=== PATIENT | female | born 1965 | race American Indian/Alaskan Native ===

== ENCOUNTER 2019-04-18 09:13 | Outpatient (CLI) | payer BC ==
[2019-04-18 09:39] LABS: Basophils # (Auto) 0.1 K/mm3 (0.0-0.1); Basophils % (Auto) 1.8 % (0.0-1.8); Eosinophils # (Auto) 0.1 K/mm3 (0.0-0.4); Eosinophils % (Auto) 2.1 % (0.0-4.3); Hematocrit 33.4 % (30.3-42.9); Lymphocytes # (Auto) 1.2 K/mm3 (1.2-5.4); Lymphocytes % (Auto) 32.5 % (13.4-35.0); Mean Corpuscular HGB Conc 33 % (30-34); Mean Corpuscular Volume 92 fl (79-97); Monocytes # (Auto) 0.3 K/mm3 (0.0-0.8); Monocytes % (Auto) 8.8 % (0.0-7.3); Platelet Count 198 K/mm3 (140-440); Red Blood Count 3.64 M/mm3 (3.65-5.03); Red Cell Distribution Width 12.9 % (13.2-15.2)
[2019-04-18 09:58] LABS: Alanine Aminotransferase 17 units/L (7-56); Albumin 4.3 g/dL (3.9-5); BUN/Creatinine Ratio 13; Blood Urea Nitrogen 12 mg/dL (7-17); Calcium 9.7 mg/dL (8.4-10.2); Hemolysis Index 8; LDL Cholesterol,Direct 136 mg/dL (50-130)
[2019-04-18 10:09] LABS: Chol/HDL Ratio 5.43 %; HDL Cholesterol 37 mg/dL (40-59)
[2019-04-21 09:01] LABS: Vitamin D, 25-OH, D2 <4 ng/mL
== END 2019-04-18 09:14 | disposition home or self-care (01) ==
LOC: LAB 09:13
PROVIDERS: ATTEND Internal Medicine
DX: Z00.00 Encounter for general adult medical examination without abnormal findings (principal); I10 Essential (primary) hypertension; J45.909 Unspecified asthma, uncomplicated
CPT/HCPCS: 36415; 80053; 80061; 82306; 85025

== ENCOUNTER 2019-05-12 07:22 | Inpatient (IN) | payer BC ==
[2019-05-12] MEDS ORDERED: dexAMETHasone 20 MG/5 ML VIAL IV ONE (07:52)
--- NOTE | 2019-05-12 08:10 | Emergency Department Report ---
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 She has been previously evaluated by me and subsequently admitted to the hospital for a possible MS flare. She states that she has had right leg weakness for over a year. She is a bit of a vague historian. However, as far as I can ascertain she has been having intermittent right leg weakness for the last week. She states that Thursday morning she woke up and was unable to move her leg at all. In improved during the day. She stated that there was intermittent weakness since then. Today she was at work and she felt as though the weakness was getting worse. She states that she has some problems with coordination of her right arm. She denies visual change. She stated that there was a difference in sensation of her right leg compared with her left on exam which is chronic in nature as well. Her history is complicated by a previous craniotomy for an unknown tumor. In addition she is treated she states with an MS medication g iven subcutaneously 3 times a week. She last saw her neurologist about 3 months ago. She cannot remember the last time she had an MR study. I sound an MR screening form from 06/05/18 seen here but no study. -: Gradual, week(s) Location: right, lower extremity Radiation: non-radiation Consistency: intermittent Improves with: none Worsens with: none Associated Symptoms: denies other symptoms Treatments Prior to Arrival: none - Related Data Home Medications Medication Instructions Recorded Confirmed Last Taken Ibuprofen [Motrin 200 MG tab] 200 mg PO Q6H PRN 06/02/18 06/02/18 Unknown Interferon Beta-1A/Albumin [Rebif 44 mcg SUB-Q 3XW 06/02/18 06/02/18 05/31/18 44 Mcg/0.5 ml Syringe] levETIRAcetam [Keppra TAB] 500 mg PO BID 06/02/18 06/02/18 06/02/18 Allergies Allergy/AdvReac Type Severity Reaction Status Date / Time No Known Allergies Allergy Verified 01/24/14 10:51 ED Review of Systems ROS: Stated complaint: WEAKNESS Other details as noted in HPI Constitutional: denies: chills, fever Eyes: denies: eye pain, eye discharge, vision change ENT: denies: ear pain, throat pain Respiratory: denies: cough, shortness of breath, wheezing Cardiovascular: denies: chest pain, palpitations Endocrine: no symptoms reported Gastrointestinal: denies: abdominal pain, nausea, diarrhea Genitourinary: denies: urgency, dysuria, discharge Musculoskeletal: denies: back pain, joint swelling, arthralgia Skin: denies: rash, lesions Neurological: as per HPI, weakness. denies: headache, paresthesias Psychiatric: denies: anxiety, depression Hematological/Lymphatic: denies: easy bleeding, easy bruising ED Past Medical Hx - Past Medical History Hx Hypertension: Yes Hx Asthma: Yes Additional medical history: MS, brain tumor - Surgical History Additional Surgical History: craniotomy 2014 - Social History Smoking Status: Never Smoker Substance Use Type: None - Medications Home Medications: Home Medications Medication Instructions Recorded Confirmed Last Taken Type Ibuprofen [Motrin 200 MG tab] 200 mg PO Q6H PRN 06/02/18 06/02/18 Unknown History Interferon Beta-1A/Albumin [Rebif 44 mcg SUB-Q 3XW 06/02/18 06/02/18 05/31/18 History 44 Mcg/0.5 ml Syringe] levETIRAcetam [Keppra TAB] 500 mg PO BID 06/02/18 06/02/18 06/02/18 History ED Physical Exam - General Limitations: No Limitations General appearance: alert, in no apparent distress - Head Head exam: Present: atraumatic, normocephalic - Eye Eye exam: Present: normal appearance. Absent: scleral icterus - ENT ENT exam: Present: mucous membranes moist - Neck Neck exam: Present: normal inspection - Respiratory Respiratory exam: Present: normal lung sounds bilaterally. Absent: respiratory distress - Cardiovascular Cardiovascular Exam: Present: regular rate, normal rhythm. Absent: systolic murmur, diastolic murmur, rubs, gallop - GI/Abdominal GI/Abdominal exam: Present: soft, normal bowel sounds. Absent: distended, tenderness, guarding, rebound - Extremities Exam Extremities exam: Present: normal inspection - Back Exam Back exam: Present: normal inspection - Neurological Exam Neurological exam: Present: alert, oriented X3, CN II-XII intact, motor sensory deficit (there appears to have some 4+ over 5 right leg weakness and perhaps some dysmetria of her right upper extremity, she has objective difference in fine touch testing comparing right to left but no loss of sensation grossly evident. Her NIH stroke score is 1 as she has test of drift and finger nose testing was normal. I'll give her one point for her chronic sensory deficit.) - Psychiatric Psychiatric exam: Present: normal mood, flat affect - Skin Skin exam: Present: warm, dry, intact, normal color. Absent: rash ED Course Vital Signs 05/12/19 07:35 Temperature 98.3 F Pulse Rate 89 Respiratory 17 Rate Blood Pressure 101/64 O2 Sat by Pulse 99 Oximetry - Reevaluation(s) Reevaluation #1: To be noted that the patient is not suspected of having a stroke. She is not a candidate for TPA. She has had fluctuating symptoms which are consistent with her previous deficits related to her multiple sclerosis over the last week. 05/12/19 08:16 Reevaluation #2: Discussed with hospitalist. Admit to their service. They will consult neurology. 05/12/19 08:49 ED Medical Decision Making - Lab Data Result diagrams: 05/12/19 08:07 05/12/19 08:07 Laboratory Results - last 24 hr 05/12/19 05/12/19 05/12/19 08:07 08:07 08:07 WBC 5.2 RBC 3.35 L Hgb 10.2 Hct 30.5 MCV 91 MCH 31 MCHC 34 RDW 12.5 L Plt Count 157 Lymph % (Auto) 12.5 L [place] % (Auto) 9.3 H Eos % (Auto) 2.1 Baso % (Auto) 0.4 Lymph # 0.7 L [place] # 0.5 Eos # 0.1 Baso # 0.0 Seg Neutrophils % 75.7 H Seg Neutrophils # 4.0 PT 12.4 INR 0.95 APTT 28.1 Sodium 140 Potassium 3.2 L Chloride 99.6 Carbon Dioxide 29 Anion Gap 15 BUN 14 Creatinine 1.0 Estimated GFR > 60 BUN/Creatinine Ratio 14 Glucose 100 Calcium 9.1 Total Creatine Kinase 164 H CK-MB (CK-2) < 1.0 CK-MB (CK-2) Rel Index 0.6 Critical care attestation.: If time is entered above; I have spent that time in minutes in the direct care of this critically ill patient, excluding procedure time. ED Disposition Clinical Impression: Multiple sclerosis exacerbation Disposition: OP ADMIT IP TO THIS HOSP Is pt being admited?: Yes Does the pt Need Aspirin: Yes Condition: Stable Referrals: PRIMARY CARE, [Primary Care Provider] - 3-5 Days Time of Disposition: 08:52
[2019-05-12] MEDS ORDERED: diphenhydrAMINE 50 MG/ML VIAL IV ONE (08:23)
[2019-05-12 08:25] LABS: Basophils % (Auto) 0.4 % (0.0-1.8); Eosinophils # (Auto) 0.1 K/mm3 (0.0-0.4); Eosinophils % (Auto) 2.1 % (0.0-4.3); Hematocrit 30.5 % (30.3-42.9); Hemoglobin 10.2 gm/dl (10.1-14.3); Lymphocytes # (Auto) 0.7 K/mm3 (1.2-5.4); Lymphocytes % (Auto) 12.5 % (13.4-35.0); Mean Corpuscular HGB Conc 34 % (30-34); Mean Corpuscular Volume 91 fl (79-97); Monocytes # (Auto) 0.5 K/mm3 (0.0-0.8); Monocytes % (Auto) 9.3 % (0.0-7.3); Platelet Count 157 K/mm3 (140-440); Red Blood Count 3.35 M/mm3 (3.65-5.03); Red Cell Distribution Width 12.5 % (13.2-15.2)
[2019-05-12 08:35] LABS: INR 0.95 (0.87-1.13); Partial Thromboplastin Time 28.1 Sec. (24.2-36.6)
[2019-05-12 08:39] LABS: BUN/Creatinine Ratio 14; Blood Urea Nitrogen 14 mg/dL (7-17); Calcium 9.1 mg/dL (8.4-10.2); Hemolysis Index 14
[2019-05-12 08:40] LABS: Creatine Kinase MB < 1.0 ng/mL (0.0-4.0)
[2019-05-12] MEDS ORDERED: POTASSIUM CHLORIDE ER 20 MEQ TAB PO ONE (08:47)
[2019-05-12 08:48] LABS: Erythrocyte Sedimentation Rate 51 mm/Hr (0-20)
[2019-05-12 08:51] LABS: Alanine Aminotransferase 19 units/L (7-56); Albumin 3.9 g/dL (3.9-5)
[2019-05-12] MEDS ORDERED: ASPIRIN 325 MG TAB PO ONE (08:51)
[2019-05-12 08:53] LABS: Bilirubin,Direct < 0.2 mg/dL (0-0.2)
--- NOTE | 2019-05-12 10:54 | History and Physical Report ---
History of Present Illness Date of examination: 05/12/19 Date of admission: 05/12/19 08:50 Chief complaint: Right leg weaker than baseline weakness History of present illness: Patient is 54 yo with history of multiple sclerosis since 2002. She also had Brain cancer in s/p craniotomy, resection, and chemotherapy at [facility]. She follows with Dr. Monster Lux, Neurologist at [place]. Patient has baseline mild right leg weakness but ambulates without a device. She presents with worse right sided weakness for about 1 week. Patient states she cohen d Flu vaccine 05/06/19 and same day at night she felt chilly but did not measure temp. Following morning she got out of bed but fell because of right leg weakness. Paramedics were called but she did not come to hospital. The weakness improved, she was able to ambulate. 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 Right leg started getting weak again, became worse while at work today therefore came to ED for evaluation. She was seen and evaluated in ED, diagnosed with possible MS exacerbation. MRI Brain ordered. Will admit. Past History Past Medical History: hypertension, other (Multiple sclerosis since 2002, Brain cancer s/p craniotomy, resection and chemotherapy , Asthma) Past Surgical History: Other (Brain cancer s/p craniotomy, chemotherapy) Social history: , lives with family, full code. denies: smoking, alcohol abuse Family history: hypertension Medications and Allergies Allergies Allergy/AdvReac Type Severity Reaction Status Date / Time No Known Allergies Allergy Verified 01/24/14 10:51 Home Medications Medication Instructions Recorded Confirmed Last Taken Type Ibuprofen [Motrin 200 MG tab] 200 mg PO Q6H PRN 06/02/18 05/12/19 05/11/19 History Interferon Beta-1A/Albumin [Rebif 44 mcg SUB-Q 3XW 06/02/18 05/12/19 05/11/19 History 44 Mcg/0.5 ml Syringe] levETIRAcetam [Keppra TAB] 500 mg PO BID 06/02/18 05/12/19 05/11/19 History hydroCHLOROthiazide [HCTZ] 12.5 mg PO BID 05/12/19 05/12/19 05/11/19 History traZODone [Desyrel] 100 mg PO QHS 05/12/19 05/12/19 05/11/19 History Review of Systems All systems: negative (Headache on and off, fatigue. No fever, No chest pain, no abd pain. All other systems revciewed and are negative) Exam - Physical Exam Narrative exam: Gen: Not in acute distress, Lying in bed,overweight HEENT: Normocephalic, atraumatic Neck: supple, no JVD Heart: S1 and S2 reg, no murmurs, rubs or gallop Lungs: Clear to auscultation, no rhonchi, no wheeze Abd: soft, non tender, non distended, normal BS, Ext: Tender left hip, No edema, no clubbing, no cyanosis Neuro: Awake, alert, oriented X 3, no facial asymmetry. Muscle power RUE 5/5 LUE 5/5 RLE 4/5 LLE 5/5 - Constitutional Vitals: Temp Pulse Resp BP Pulse Ox 98.3 F 85 15 102/65 96 05/12/19 07:35 05/12/19 09:00 05/12/19 09:00 05/12/19 09:00 05/12/19 09:00 Results - Labs CBC & Chem 7: 05/13/19 05:55 05/13/19 05:55 Labs: Abnormal lab results 05/12/19 05/12/19 Range/Units 08:07 08:07 RBC 3.35 L (3.65-5.03) M/mm3 RDW 12.5 L (13.2-15.2) % Lymph % (Auto) 12.5 L (13.4-35.0) % [place] % (Auto) 9.3 H (0.0-7.3) % Lymph # 0.7 L (1.2-5.4) K/mm3 Seg Neutrophils % 75.7 H (40.0-70.0) % Potassium 3.2 L (3.6-5.0) mmol/L Total Creatine Kinase 164 H (30-135) units/L Assessment and Plan Right leg weakness possibly due to multiple sclerosis flare weaker than baseline weakness Admit to med/surg Decadron iv given in ED Consult neurology Neurochecks Multiple sclerosis since 2002 Follows wit neurology History of Brain cancer, malignant tumor s/p craniotomy,resection, chemotherapy in 2014/2015 Hypertension Monitor BP Asthma Full code status
[2019-05-12] MEDS ORDERED: ACETAMINOPHEN 325 MG TAB PO PRN (11:03)
[2019-05-12] MEDS ORDERED: MORPHINE 2 MG/1 ML INJ IV PRN (11:03)
[2019-05-12] MEDS ORDERED: ONDANSETRON 4 MG/2 ML INJ IV PRN (11:03)
--- NOTE | 2019-05-12 12:27 | Magnetic Resonance Report ---
MRI BRAIN 05/12/2019 INDICATION / CLINICAL INFORMATION: R sided weakness MS flair. TECHNIQUE: Multiplanar, multisequence MR images of the brain were obtained. Findings:: Unenhanced and enhanced MR images of the brain were obtained. There is no evidence of acute ischemic injury. In the left anterior frontal lobe, there is extensive encephalomalacia, associated with what appears to be extensive serpiginous vascular structures, consistent with arteriovenous malformation. There is no evidence of hemorrhage. Some subtle patchy areas of increased T1 weighted signal is noted, which may be due to mineralization or chronic blood products. There is no evidence of acute ischemic injury or acute hemorrhage. Ventricles and sulci are normal in size and shape for a patient of this age. There is some ex vacuo d ilatation of the frontal horn of left lateral ventricle, associated with the large area of encephalom alacia. Prominent chronic appearing white matter T2 weighted hyperintensities are present in the cerebral hem ispheric white matter bilaterally. There are no abnormal extra-axial fluid collections. On postcontrast images, there is some dural enhancement in the anterior medial left frontal lobe, in association with the area of encephalomalacia and AVM. A be due to prior surgery or radiation treatme nt. There is no other evidence of abnormal enhancement. EXTRACRANIAL: Unremarkable CRANIOCERVICAL JUNCTION: No significant abnormality. VASCULAR FLOW-VOIDS: No significant abnormality. 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 Correlation with details of the prior history and comparison with recent prior studies would be helpful for further evaluation. No evidence of acute abnormality. Signer Name: Herberth Dumont MD Signed: 05/12/2019 12:22 PM Workstation Name: [id number]
[2019-05-12] MEDS: levETIRAcetam 500 MG TAB PO SCH ×2 (13:14→22:33)
[2019-05-12 17:05] LABS: Bilirubin,Urine NEG (Negative); Blood,Urine NEG (Negative); Color,Urine Yellow (Yellow); Mucus,Urine FEW /HPF; Protein,Urine <15 mg/dL mg/dL (Negative); Urobilinogen,Urine < 2.0 mg/dL (<2.0)
[2019-05-12 17:07] LABS: WBC,Urine < 1.0 /HPF (0.0-6.0)
--- NOTE | 2019-05-12 18:56 | Consultation ---
History of Present Illness Consult date: 05/12/19 Reason for Consult: Right leg weakness Chief complaint: Right leg weakness History of present illness: Patient is a 54-year-old woman with a history of hypertension, asthma, multiple sclerosis, history of brain tumor status post resection and chemotherapy. Patient states that for the past year and a half, she is had a baseline of right lower extremity weakness. On Thursday, the patient had the flu vaccine, and that evening she noticed that she was having chills. She got up to go to the restroom that night, and noticed that she had increased weakness of the right leg, due to which she fell. Over the weekend, she noted that her right leg weakness had gradually improved, and she was able to perform her usual work over the course of the week. However, earlier today, the patient noted that she was having increased weakness of the right leg Ammann and unsteady gait, for which she presented to the ER. She is currently followed by a primary neurologist who is treating her multiple sclerosis with Rebif. Past History Past Medical History: hypertension, other (Multiple sclerosis since 2002, Brain cancer s/p craniotomy, resection and chemotherapy , Asthma) Past Surgical History: Other (Brain cancer s/p craniotomy, chemotherapy) Social history: , lives with family, full code. denies: smoking, alc ohol abuse Family history: hypertension Medications and Allergies Allergies Allergy/AdvReac Type Severity Reaction Status Date / Time No Known Allergies Allergy Verified 01/24/14 10:51 Home Medications Medication Instructions Recorded Confirmed Last Taken Type Ibuprofen [Motrin 200 MG tab] 200 mg PO Q6H PRN 06/02/18 05/12/19 05/11/19 History Interferon Beta-1A/Albumin [Rebif 44 mcg SUB-Q 3XW 06/02/18 05/12/19 05/11/19 History 44 Mcg/0.5 ml Syringe] levETIRAcetam [Keppra TAB] 500 mg PO BID 06/02/18 05/12/19 05/11/19 History hydroCHLOROthiazide [Hctz] 12.5 mg PO BID 05/12/19 05/12/19 05/11/19 History traZODone [Desyrel] 100 mg PO QHS 05/12/19 05/12/19 05/11/19 History Active Meds: Active Medications Acetaminophen (Tylenol) 650 mg PO Q4H PRN PRN Reason: Pain MILD(1-3)/Fever >100.5/[place] Hydrochlorothiazide (Hctz) 12.5 mg PO BID [facility] Levetiracetam (Keppra) 500 mg PO BID [facility] Last Admin: 05/12/19 13:14 Dose: Not Given Documented by: Miscellaneous Medication (Interferon Beta-1a/Albumin [Rebif 44 Mcg/0.5 Ml Syringe]) 44 mcg SUB-Q 3XW [facility] Morphine Sulfate (Morphine) 2 mg IV Q4H PRN PRN Reason: Pain, Moderate (4-6) Ondansetron HCl (Zofran) 4 mg IV Q8H PRN PRN Reason: Nausea And Vomiting Sodium Chloride (Sodium Chloride Flush Syringe 10 Ml) 10 ml IV BID [facility] Sodium Chloride (Sodium Chloride Flush Syringe 10 Ml) 10 ml IV PRN PRN PRN Reason: LINE FLUSH Trazodone HCl (Desyrel) 100 mg PO QHS [facility] Review of Systems All systems: negative Neurological: weakness, parathesias Physical Examination - Vital Signs Vital Signs: Vital Signs Temp Pulse Resp BP Pulse Ox 98.3 F 89 17 101/64 99 05/12/19 07:35 05/12/19 07:35 05/12/19 07:35 05/12/19 07:35 05/12/19 07:35 - Physical Exam Narrative exam: Patient is awake, alert, oriented 4, follows complex commands. PERRL, VFF, no facial weakness noted, tongue midline, EOMI. 5/5 strength in bilateral upper extremities and left lower extremity, 3/5 strength in right lower extremity. Decreased sensations to light touch in the right lower extremity, otherwise intact in all other extremities. Bilaterally intact to finger to nose, unable to assess heel to loja and right lower extremity due to weakness, intact left lower extremity. 3+ reflexes in right lower extremity, 2+ reflexes in all other extremities. No dysarthria or aphasia noted. - Constitutional General appearance: comfortable - EENT EENT: Present: ATNC, PERRL, mucous membranes moist, hearing intact, vision intact - Respiratory Respiratory: Present: lungs clear, normal breath sounds - Cardiovascular Cardiovascular: Present: regular rate, normal S1, normal S2 Extremities: Present: no clubbing, cyanosis, no inflammation - Gastrointestinal Gastrointestinal: Present: normoactive bowel sounds, soft, non-tender - Integumentary Integumentary: Present: normal - Musculoskeletal Musculoskeletal: Present: no fluid collection, no pain - Psychiatric Psychiatric: Present: mood/affect appropriate Results - Laboratory Findings CBC and BMP: 05/12/19 08:07 05/12/19 08:07 Abnormal Lab Findings: Abnormal Labs 05/12/19 05/12/19 08:07 08:07 RBC 3.35 L RDW 12.5 L Lymph % (Auto) 12.5 L [place] % (Auto) 9.3 H Lymph # 0.7 L Seg Neutrophils % 75.7 H Potassium 3.2 L Total Creatine Kinase 164 H Assessment and Plan Patient is a 54-year-old woman with a history of hypertension, asthma, multiple sclerosis, history of brain tumor status post resection and chemotherapy, who presents with increase right leg weakness. According the patient's clinical findings, it is possible that she's had an acute exacerbation of underlying MS. Alternatively, the patient may have a gradual progression of a chronic underlying MS, and the absent of an acute exacerbation. Plan: 1. Right leg weakness: - MRI brain with and without contrast did not reveal any evidence of acute exacerbation of MS, as no enhancing lesions were noted. - Will check MRI of cervical, thoracic, lumbar spine with and without contrast, to assess for any demyelinating lesions. - PT/OT/ST. - Recommend for patient to continue rebus as she was taking at home. - Will continue to monitor the patient's neurologic status. Thank you for allowing me to take part in the care of this patient. Kingsley Pino MD Neurology
[2019-05-12] MEDS ORDERED: traZODone 100 MG TAB PO SCH (22:00)
[2019-05-12] MEDS: hydroCHLOROthiazide 12.5 MG CAP PO SCH (22:33)
[2019-05-13 06:42] LABS: Basophils % (Auto) 0.4 % (0.0-1.8); Hematocrit 31.6 % (30.3-42.9); Hemoglobin 10.5 gm/dl (10.1-14.3); Lymphocytes # (Auto) 1.2 K/mm3 (1.2-5.4); Lymphocytes % (Auto) 22.3 % (13.4-35.0); Mean Corpuscular HGB Conc 33 % (30-34); Mean Corpuscular Volume 92 fl (79-97); Monocytes # (Auto) 0.4 K/mm3 (0.0-0.8); Monocytes % (Auto) 6.4 % (0.0-7.3); Platelet Count 143 K/mm3 (140-440); Red Blood Count 3.45 M/mm3 (3.65-5.03); Red Cell Distribution Width 12.7 % (13.2-15.2)
[2019-05-13 06:50] LABS: BUN/Creatinine Ratio 22; Blood Urea Nitrogen 20 mg/dL (7-17); Calcium 9.2 mg/dL (8.4-10.2); Hemolysis Index 19
[2019-05-13] MEDS ORDERED: ALBUMIN SUB-Q SCH (10:00)
[2019-05-13] MEDS ORDERED: INTERFERON BETA SUB-Q SCH (10:00)
[2019-05-13] MEDS: levETIRAcetam 500 MG TAB PO SCH (10:10)
[2019-05-13] MEDS: hydroCHLOROthiazide 12.5 MG CAP PO SCH (10:10)
--- NOTE | 2019-05-13 15:07 | Progress Note ---
Assessment and Plan Patient is a 54-year-old woman with a history of hypertension, asthma, multiple sclerosis, history of brain tumor status post resection and chemotherapy, who presents with increase right leg weakness. According the patient's clinical findings, it is possible that she's had an acute exacerbation of underlying MS. Alternatively, the patient may have a gradual progression of a chronic underlying MS, and the absent of an acute exacerbation. Plan: 1. Right leg weakness: - MRI brain with and without contrast did not reveal any evidence of acute exacerbation of MS, as no enhancing lesions were noted. - Will check MRI of cervical, thoracic, lumbar spine with and without contrast, to assess for any demyelinating lesions.- Pending - PT/OT/ST. - Recommend for patient to continue rebus as she was taking at home. -Will sign off as I am not covering neurology service over the weekend. Recommend for neurologist who is covering weekend to be consulted for further neurologic monitoring/management. - If patient unable to have MRI of C/T/L spine today, she could potentially have it done outpatient by her primary neurologist, as she has now returned to baseline and the increase in RLE weakness has resolved today. Thank you for allowing me to take part in the care of this patient. Kingsley Pino MD Neurology Subjective Date of service: 05/13/19 Principal diagnosis: Right leg weakness Interval history: No acute events overnight. Patient states that her RLE weakness has resolved, and that she is back at baseline today. Objective - Exam Narrative Exam: Patient is awake, alert, oriented 4, follows complex commands. PERRL, VFF, no facial weakness noted, tongue midline, EOMI. 5/5 strength in bilateral upper extremities and left lower extremity, 4/5 strength in right lower extremity. Decreased sensations to light touch in the right lower extremity, otherwise in tact in all other extremities. Bilaterally intact to finger to nose, unable to assess heel to loja and right lower extremity due to weakness, intact left lower extremity. 3+ reflexes in right lower extremity, 2+ reflexes in all other extremities. No dysarthria or aphasia noted. - Vital Sign Vital Signs - 12hr 05/13/19 05/13/19 06:27 12:18 Temperature 97.9 F 98.1 F Pulse Rate 83 67 Respiratory 16 14 Rate Blood Pressure 108/84 124/78 O2 Sat by Pulse 98 100 Oximetry - General Apperance Constitutional: comfortable - EENT EENT: ATNC, PERRL, mucous membranes moist, hearing intact, vision intact - Respiratory Respiratory: lungs clear, normal breath sounds - Cardiovascular Cardiovascular: regular rate, normal S1, normal S2 Extremities: no clubbing, cyanosis, no inflammation - Gastrointestinal Gastrointestinal: normoactive bowel sounds, soft, non-tender - Integumentary Integumentary: normal - Musculoskeletal Musculoskeletal: no fluid collection, no pain - Psychiatric Psychiatric: mood/affect appropriate - Laboratory Findings CBC and BMP: 05/13/19 05:55 05/13/19 05:55 Abnormal Lab Findings: Abnormal Labs 05/12/19 05/12/19 05/13/19 08:07 08:07 05:55 RBC 3.35 L 3.45 L RDW 12.5 L 12.7 L Lymph % (Auto) 12.5 L [place] % (Auto) 9.3 H Lymph # 0.7 L Seg Neutrophils % 75.7 H 70.9 H Potassium 3.2 L BUN Glucose Total Creatine Kinase 164 H 05/13/19 05:55 RBC RDW Lymph % (Auto) [place] % (Auto) Lymph # Seg Neutrophils % Potassium BUN 20 H Glucose 106 H Total Creatine Kinase
--- NOTE | 2019-05-13 17:04 | Discharge Summary ---
Providers - Providers Date of Admission: 05/12/19 08:50 Date of discharge: 05/13/19 Attending physician: KEVIN LEE 05/12/19 09:09 Consult to Physician [CONS] Routine Comment: Consulting Provider: SARINA IRWIN Physician Instructions: Reason For Exam: Right leg weakness, multiple sclerosis Primary care physician: SADDLE MECHANIC Hospitalization Condition: Fair Hospital course: Patient is 54 yo with history of multiple sclerosis since 2002. She also had Brain cancer in 2014/2015 s/p craniotomy, resection, and chemotherapy at [facility]. She follows with Dr. Monster Lux, Neurologist at [place]. Patient has baseline mild right leg weakness but ambulates without a device. She presented with worse right sided weakness for about 1 week. Patient states she had Flu vaccine 05/06/19 and same day at night she felt chilly but did not measure temp. Following morning she got out of bed but fell because of right leg weakness. Paramedics were called but she did not come to hospital. The weakness improved, she was able to ambulate. 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 She was seen and evaluated in ED. She was admitted to rule out possible MS exacerbation. Patient was evaluated by Neurologist. MRI Brain and spine was done did not reveal MS exacerbation. Patient was subsequently discharged home. Disposition: DC- TO HOME OR SELFCARE - Discharge Diagnoses (1) Hypokalemia Status: Acute (2) HTN (hypertension) Status: Chronic (3) History of brain tumor Status: Chronic (4) Multiple sclerosis Status: Chronic (5) HTN (hypertension) Status: Acute (6) Asthma Status: Acute Core Measure Documentation - Palliative Care Palliative Care/ Comfort Measures: Not Applicable - Core Measures Any of the following diagnoses?: none Exam - Constitutional Vitals: Temp Pulse Resp BP Pulse Ox 98.1 F 67 14 124/78 100 05/13/19 12:18 05/13/19 12:18 05/13/19 12:18 05/13/19 12:18 05/13/19 12:18 Plan Activity: advance as tolerated, other (Can return to work on Thursday05/17/19) Diet: low fat, low cholesterol, low salt Plan of Treatment: 1.Follow up with PCP in 1 week. 2.Follow up with primary neurologist in 1 week. 3.Can return to work on Thursday05/17/19 Follow up with: PRIMARY CARE, [Primary Care Provider] - 3-5 Days
--- NOTE | 2019-05-13 17:54 | Magnetic Resonance Report ---
Nonenhanced and contrast enhanced MR scan of the lumbar spine: INDICATION / CLINICAL INFORMATION: Right leg weakness, history of MS. TECHNIQUE: Multisequence, multiplanar images of the lumbar spine were obtained. COMPARISON: None available. FINDINGS: I am considering the lumbosacral junction to be L5-S1. In these images, I do not see postsurgical michelle nges in the lumbar spine. ALIGNMENT: Normal lumbar lordosis without significant scoliosis. VERTEBRAE:Normal marrow signal and vertebral body height for age. VISUALIZED SPINAL CORD: No significant abnormality. Conus ends at L1-L2 level. I do not see focal les ion in the distal spinal cord. In the contrast enhanced series, I do not see enhancement within the s мария cord. Enhancement in the anterior mediastinum spinal vein is normal. [id number] ANALYSIS: T11-T12 and T12-L1 disc spaces are normal. L1-2: No significant abnormality. L2-3: No significant abnormality. L3-4: Lateral disc protrusion is seen bilaterally. Neuroforamina are normal. L4-5: Broad-based shallow disc protrusion is seen towards the left side. Hypertrophied facets and lig aments are seen bilaterally. L5-S1: No significant abnormality. PARASPINAL SOFT TISSUES: No significant abnormality. ADDITIONAL FINDINGS: None. IMPRESSION: Normal distal spinal cord Lateral disc protrusion at L3-L4 level bilaterally Broad-based shallow disc protrusion extending towards the left side at L4-L5 disc level Signer Name: Kayden Agrawal MD Signed: 05/13/2019 5:50 PM Workstation Name: [id number]
--- NOTE | 2019-05-13 17:55 | Magnetic Resonance Report ---
MRI CERVICAL SPINE with and without IV contrast. INDICATION / CLINICAL INFORMATION: Right leg weakness, history of MS. TECHNIQUE: Multisequence, multiplanar images of the cervical spine were obtained. COMPARISON: None available. FINDINGS: CRANIOCERVICAL JUNCTION:No significant abnormality. ALIGNMENT: No significant abnormality. VERTEBRAE:Normal marrow signal and vertebral body height for age. VISUALIZED SPINAL CORD: There is a rounded 4 mm focus of increased signal projected within the centra l cord at the C5-6 level. On the sagittal imaging, there also appears be a hyperintense lesion within the right lateral cord centered at the T2 level measuring approximately 1.4 cm longitudinally. The f indings would be most consistent with demyelination given the patient's history of. There is no clear evidence of associated enhancement. EYFOP-JF-YJHUI ANALYSIS: C2-3: No significant disc abnormality, spinal canal stenosis, or neural foraminal stenosis. C3-4: The central disc bulge effaces the ventral subarachnoid space without significant direct cord c ompression. The findings encroach on the lateral recesses with moderate to marked right and moderate left neural foraminal narrowing. C4-5: The broad-based central disc bulge mildly flattens the ventral cord at. There is again encroach ment on the lateral recesses with marked right and moderate left neural foraminal narrowing. C5-6: The spondylosis mildly deforms the ventral cord. There is marked right and moderate to marked l eft neural foraminal narrowing. C6-7: There is a slight central disc bulge without direct cord compression. There is moderate to maria elena ed right neural foraminal narrowing. C7-T1: There is no significant central stenosis at. The facet joint hypertrophy on the right results in mild to moderate right neural foraminal narrowing at. PARASPINAL SOFT TISSUES: No significant abnormality. ADDITIONAL FINDINGS: No epidural collections are identified. IMPRESSION: 1. There are hypertensive foci involving the spinal cord at C5-6 and T2 as detailed above most consis tent with demyelination given the patient's history. The MRI of thoracic spine will be dictated separ ately. 2. There are multilevel degenerative changes involving the cervical spine with posterior spondylosis and significant neural foraminal narrowing as detailed above Signer Name: Rey Coe MD Signed: 05/13/2019 5:50 PM Workstation Name: [id number]
--- NOTE | 2019-05-13 18:01 | Magnetic Resonance Report ---
MRI THORACIC SPINE with and without IV contrast. INDICATION / CLINICAL INFORMATION: Right leg weakness, history of MS. TECHNIQUE: Multisequence, multiplanar images of the thoracic spine were obtained. COMPARISON: None available. FINDINGS: ALIGNMENT: Normal thoracic kyphosis without significant scoliosis. VERTEBRAE:There is mild diffuse heterogeneous appearance of the vertebral bodies without focal edemat ous lesions. VISUALIZED SPINAL CORD: There is a hyperintense lesion involving the right lateral cord at the T1-2 l evel measuring approximately 1.4 cm in greatest longitudinal dimension. Furthermore, there appears be subtle hyperintense lesion along the left lateral cord at T10 measuring 1.2 cm longitudinally. The a tanya findings would be most consistent with demyelination given the patient's a history of. Fortunate ly, there is inhomogeneous fat saturation involving the upper thoracic spine on the postcontrast imag es. However, no definitive intramedullary enhancing lesions are appreciated involving the visualized segments. INTERVERTEBRAL DISCS: There appears to be a mild global mild disc desiccation involving the mid thora cic segments. However, there is no focal disc protrusion or significant spinal stenosis involving the thoracic spine. PARASPINAL SOFT TISSUES: No significant abnormality. ADDITIONAL FINDINGS: No epidural collections are identified at. IMPRESSION: 1. There are hyperintense lesions involving the right lateral cord at T1-2 and the left lateral cord at T10 as detailed above indicative of demyelination given the patient's history. Signer Name: Rey Coe MD Signed: 05/13/2019 5:56 PM Workstation Name: [id number]
[2019-05-13 18:41] VITALS: BP 107/60
== END 2019-05-13 19:45 | disposition home or self-care (01) | DRG 948 ==
LOC: ED 07:22 → 3A 08:50
PROVIDERS: ADMIT Internal Medicine; ATTEND Internal Medicine
DX: R53.1 Weakness (principal); G35 Multiple sclerosis; I10 Essential (primary) hypertension; J45.909 Unspecified asthma, uncomplicated; Z79.899 Other long term (current) drug therapy; Z85.841 Personal history of malignant neoplasm of brain; Z92.21 Personal history of antineoplastic chemotherapy; Z82.49 Family history of ischemic heart disease and other diseases of the circulatory system
CPT/HCPCS: 36415; 70553; 72156; 72157; 72158; 80048; 80076; 81001; 82550; 82553; 83735; 85025; 85610; 85652; 85730; 86140; 96374; G0378; A9577; J1100; J1200

== ENCOUNTER 2020-05-07 06:05 | Outpatient (CLI) | payer BC ==
--- NOTE | 2020-05-07 12:24 | Magnetic Resonance Report ---
MR thoracic spine wo/w con INDICATION / CLINICAL INFORMATION: 55 years Female; MAIN. Follow up for MS TECHNIQUE: Multisequence, multiplanar images of the thoracic spine were obtained. COMPARISON: 05/13/2019 FINDINGS: ALIGNMENT: Normal thoracic kyphosis without significant scoliosis. VERTEBRAE:Grossly normal marrow signal and vertebral body height for age. No significant facet joint disease or osseous foraminal narrowing appreciated. VISUALIZED SPINAL CORD: Cord signal abnormality again noted at T1 to and T9-10. These particular find ings are not significantly changed from prior. There is no enhancement in these areas to suggest acut e demyelination. There are also subtle areas of increased signal seen in the thoracic cord at T3-4, T4-5, and T8 leve ls. There is no enhancement in these regions. These findings are suspicious for demyelinating disease , given the patient's history. Note, today's exam is of better quality than that from 2019. INTERVERTEBRAL DISCS: No significant abnormality. PARASPINAL SOFT TISSUES: No significant abnormality. ADDITIONAL FINDINGS: Scarring type changes are seen in the lung bases. IMPRESSION: 1. Findings consistent with demyelinating disease as described above. I believe there are a few more lesions visualized on the current study when compared with prior, although the current exam appears t o be of better quality. Overall, no definitive signs of acute demyelination are appreciated. Signer Name: Perry Noel MD, III Signed: 05/07/2020 12:20 PM Workstation Name: [id number]
--- NOTE | 2020-05-07 13:59 | Magnetic Resonance Report ---
NONENHANCED AND CONTRAST-ENHANCED MR SCAN OF THE CERVICAL SPINE: INDICATION / CLINICAL INFORMATION: Multiple sclerosis TECHNIQUE: Multisequence, multiplanar images of the cervical spine were obtained. COMPARISON: MR scan of the cervical spine from 05/13/2019 FINDINGS: CRANIOCERVICAL JUNCTION:No significant abnormality. ALIGNMENT: No significant abnormality. VERTEBRAE:Normal marrow signal and vertebral body height for age. VISUALIZED SPINAL CORD: As seen in the last MRI scan, focal lesions are seen in the lower medulla, ce rvical spinal cord at C5-C6 disc level, prominent lesions at T2 vertebral body level. No enhancement is seen in these lesions. I am considering the cyst demyelinating plaques, given the history of multi ple sclerosis. These remain unchanged. [id number] ANALYSIS: C2-3: No significant disc abnormality, spinal canal stenosis, or neural foraminal stenosis. C3-4: Bulging disc extending laterally bilaterally more towards the right side resulting in right for aminal stenoses reminds unchanged C4-5: Minimal anterolisthesis; disc protrusion extending laterally bilaterally; bilateral foraminal s tenoses; remain unchanged C5-6: Loss of disc height; disc osteophyte complex extending bilaterally; neuroforamina are narrowed; MR findings remain unchanged C6-7: Bulging disc; remains unchanged C7-T1: No significant disc abnormality, spinal canal stenosis, or neural foraminal stenosis. PARASPINAL SOFT TISSUES: No significant abnormality. ADDITIONAL FINDINGS: None. IMPRESSION: MR findings remain unchanged Demyelinating plaques in the lower medulla, at C5-C6 disc level and at T2 vertebral body level remain unchanged Spondylotic changes at C4-C5 and C5-C6 disc levels remain unchanged Signer Name: Kayden Agrawal MD Signed: 05/07/2020 1:54 PM Workstation Name: [email or web address]
--- NOTE | 2020-05-07 14:28 | Magnetic Resonance Report ---
NONENHANCED AND CONTRAST-ENHANCED MR SCAN OF THE BRAIN: INDICATION / CLINICAL INFORMATION: "Malignant neoplasm of the brain"; multiple sclerosis; right leg weakness TECHNIQUE: Multiplanar, multisequence MR images of the brain obtained. COMPARISON: MR scan of the brain from 02/02/2020 and 05/12/2019 FINDINGS: BRAIN / INTRACRANIAL CONTENTS: 1. LEFT FRONTAL LOBE: As seen in the previous MRI scans, encephalomalacia is seen in the left frontal lobe with compensatory enlargement of left frontal horn. Adjacent meningeal enhancement remains unch anged. As seen in the previous MRI scan, susceptibility changes are seen suggesting old hemorrhagic p roducts and prominent blood vessels. These remain unchanged. As seen in the last MRI scan, increased FLAIR signal intensity is seen extending along the inferior orbital temporal fasciculus. 2. WHITE MATTER LESIONS: New T2 hyperintense lesions: None Enhancing lesions: None Lesions with reduced diffusion: None Overall disease burden: More than 20; no change T1 black holes: Less than 5; unchanged Parenchymal atrophy: Moderate Callosal atrophy: Mild CRANIOCERVICAL JUNCTION: Focal lesion in the lower medulla VASCULAR FLOW-VOIDS: No significant abnormality. ORBITS: No significant abnormality of visualized orbits. SINUSES / MASTOIDS: No significant abnormality of visualized sinuses and mastoid air cells. ADDITIONAL FINDINGS: None. IMPRESSION: 1. No change in the left frontal lobe White matter lesions remain unchanged Signer Name: Kayden Agrawal MD Signed: 05/07/2020 2:23 PM Workstation Name: [id number]
== END 2020-05-07 06:06 | disposition home or self-care (01) ==
LOC: MRI 06:05
PROVIDERS: ATTEND Psychiatry & Neurology Neurology
DX: C71.9 Malignant neoplasm of brain, unspecified (principal); M50.21 Other cervical disc displacement, high cervical region
CPT/HCPCS: 70553; 72156; 72157; A9577

== ENCOUNTER 2020-05-18 08:36 | Outpatient (CLI) | payer BC ==
[2020-05-18 09:10] LABS: Eosinophils # (Auto) 0.1 K/mm3 (0.0-0.4); Eosinophils % (Auto) 2.9 % (0.0-4.3); Hematocrit 33.5 % (30.3-42.9); Hemoglobin 10.9 gm/dl (10.1-14.3); Lymphocytes # (Auto) 1.4 K/mm3 (1.2-5.4); Lymphocytes % (Auto) 44.3 % (13.4-35.0); Mean Corpuscular HGB Conc 33 % (30-34); Mean Corpuscular Volume 94 fl (79-97); Monocytes # (Auto) 0.3 K/mm3 (0.0-0.8); Monocytes % (Auto) 9.8 % (0.0-7.3); Platelet Count 178 K/mm3 (140-440); Red Blood Count 3.57 M/mm3 (3.65-5.03); Red Cell Distribution Width 12.5 % (13.2-15.2)
[2020-05-18 09:22] LABS: Alanine Aminotransferase 24 units/L (7-56); Albumin 4.3 g/dL (3.9-5); BUN/Creatinine Ratio 21; Blood Urea Nitrogen 23 mg/dL (7-17); Calcium 9.7 mg/dL (8.4-10.2); Hemolysis Index 2
== END 2020-05-18 08:37 | disposition home or self-care (01) ==
LOC: LAB 08:36
PROVIDERS: ATTEND Internal Medicine
DX: I10 Essential (primary) hypertension (principal)
CPT/HCPCS: 36415; 80053; 85025

== ENCOUNTER 2020-08-31 09:11 | Outpatient (CLI) | payer BC ==
--- NOTE | 2020-08-31 12:51 | Magnetic Resonance Report ---
NONENHANCED AND CONTRAST-ENHANCED MR SCAN OF THE BRAIN: INDICATION / CLINICAL INFORMATION: Multiple sclerosis; right frontal lobe surgery TECHNIQUE: Multiplanar, multisequence MR images of the brain obtained. COMPARISON: MR scan of the brain from 05/07/2020 and 02/02/2020 FINDINGS: BRAIN / INTRACRANIAL CONTENTS: 1. No focal area of restrictive diffusion; this would exclude acute/subacute ischemia in the cerebral and cerebellar hemispheres and brainstem; no acute hemorrhagic lesion 2. Findings in the left frontal lobe remains unchanged. MR findings suggest serpiginous flow void are as suggestive of vascular malformation. Postsurgical changes are seen in the left frontal pole. These findings remain unchanged. 3. As seen in the last MRI scan, periventricular and deep hemispheric white matter lesions are seen. Given the history of multiple sclerosis, these are consistent with demyelinating plaques. 4. Compared to the last MRI scan, no new lesions seen. None of these lesions has enhancement or restr icted diffusion. However, these lesions have T 1 black holes. CRANIOCERVICAL JUNCTION: No significant abnormality. VASCULAR FLOW-VOIDS: Major blood vessels are patent ORBITS: No significant abnormality of visualized orbits. SINUSES / MASTOIDS: No significant abnormality of visualized sinuses and mastoid air cells. ADDITIONAL FINDINGS: None. IMPRESSION: 1. No change in the left frontal lobe; serpiginous blood vessels in the inferior left frontal lobe White matter lesions in both cerebral hemispheres remain unchanged; no new white matter lesions Signer Name: Kayden Agrawal MD Signed: 08/31/2020 12:47 PM Workstation Name: [email or web address]
== END 2020-08-31 09:12 | disposition home or self-care (01) ==
LOC: MRI 09:11
PROVIDERS: ATTEND Internal Medicine Medical Oncology
DX: C71.1 Malignant neoplasm of frontal lobe (principal)
CPT/HCPCS: 70553; A9577

== ENCOUNTER 2020-11-06 12:21 | Outpatient (CLI) | payer BC ==
[2020-11-06 13:01] LABS: BUN/Creatinine Ratio 23; Blood Urea Nitrogen 21 mg/dL (7-17); Calcium 9.4 mg/dL (8.4-10.2); Hemolysis Index 4
== END 2020-11-06 12:22 | disposition home or self-care (01) ==
LOC: LAB 12:21
PROVIDERS: ATTEND Internal Medicine
DX: I10 Essential (primary) hypertension (principal)
CPT/HCPCS: 36415; 80048

== ENCOUNTER 2020-11-13 06:18 | Outpatient (CLI) | payer BC ==
--- NOTE | 2020-11-13 13:40 | Mammography Report ---
DIGITAL SCREENING MAMMOGRAM WITH CAD, 11/13/2020 CLINICAL INFORMATION / INDICATION: Routine screening mammography. SCREENING MAMMOGRAM TECHNIQUE: Digital bilateral 2D mammography was obtained in the craniocaudal and mediolateral obliqu e projections. This examination was interpreted with the benefit of Computer-Aided Detection analysis . COMPARISON: 09/29/14 through 07/16/18. FINDINGS: Breast Density: The breasts are heterogeneously dense, which may obscure small masses. No dominant mass, suspicious calcifications, or architectural distortion in either breast. Calcifications in the left upper outer quadrant posteriorly are stable. No new abnormality is seen. IMPRESSION: No mammographic evidence of malignancy. Follow up recommendation: Routine yearly BI-RADS Category 2: Benign. A "normal" or negative report should not discourage follow up or biopsy of a clinically significant f inding. A written summary of these findings will be mailed to the patient. The patient will be entered into a mammography reporting system which will generate a reminder letter for the patient's next appointmen t at the appropriate interval. The [employer] recommends yearly mammograms starting at age 40 and continuing as l lissa as a woman is in good health. Breast MRI is recommended for women with an approximate 20-25% or greater lifetime risk of breast cancer, including women with a strong family history of breast or ova audra cancer or who have been treated for Hodgkin's disease. Signer Name: Deion Roberts MD Signed: 11/13/2020 1:35 PM Workstation Name: [email or web address]
== END 2020-11-13 06:19 | disposition home or self-care (01) ==
LOC: MAMMO 06:18
PROVIDERS: ATTEND Internal Medicine
DX: Z12.31 Encounter for screening mammogram for malignant neoplasm of breast (principal); N64.89 Other specified disorders of breast
CPT/HCPCS: 77067

== ENCOUNTER 2020-12-13 08:59 | Outpatient (CLI) | payer BC ==
--- NOTE | 2020-12-13 11:38 | Magnetic Resonance Report ---
MR brain wo/w con, MR cervical spine wo/w con INDICATION / CLINICAL INFORMATION: MULTIPLE SCLEROSIS G35. TECHNIQUE: Multiplanar, multisequence MR images of the brain and cervical spine were obtained. COMPARISON: August 31, 2020 brain MRI. MRI cervical spine May 07, 2020 FINDINGS: MRI BRAIN: INTRACRANIAL: There are T2 signal hyperintensities in a similar distribution and quantity compared to prior examination. No associated enhancement or restricted diffusion. Prior left frontal craniotomy with unchanged underlying encephalomalacia, gliosis, and hemosiderin. No restricted diffusion. No hem orrhage. Ventricular caliber is normal. No extra-axial collection. No mass. No herniation. Major int racranial vascular flow voids are preserved. ORBITS: No significant abnormality of visualized orbits. SINUSES / MASTOIDS: No significant abnormality of visualized sinuses and mastoid air cells. MRI CERVICAL: ALIGNMENT: Normal alignment. VERTEBRAE:No aggressive osseous marrow signal. Vertebral body heights are preserved. SPINAL CORD: Unchanged T2 signal hyperintensities involving the cervical spinal. No new T2 signal hyp erintensities are identified. SPONDYLOSIS: Unchanged. PARASPINAL SOFT TISSUES: No significant abnormality. ADDITIONAL FINDINGS: None. IMPRESSION: 1. Unchanged demyelinating plaques of the brain and cervical spinal cord consistent with patient's hi story of multiple sclerosis. No imaging evidence of active demyelination. Signer Name: Fernando Narvaez MD Signed: 12/13/2020 11:33 AM Workstation Name: [id number]
== END 2020-12-13 09:00 | disposition home or self-care (01) ==
LOC: MRI 08:59
PROVIDERS: ATTEND Psychiatry & Neurology Neurology
DX: G35 Multiple sclerosis (principal); G93.89 Other specified disorders of brain
CPT/HCPCS: 70553; 72156; A9575

== ENCOUNTER 2020-12-28 09:13 | Outpatient (CLI) | payer BC ==
[2020-12-28 14:43] LABS: Alanine Aminotransferase 27 units/L (7-56); Albumin 4.7 g/dL (3.9-5); BUN/Creatinine Ratio 16; Blood Urea Nitrogen 13 mg/dL (7-17); Calcium 9.3 mg/dL (8.4-10.2); Hemolysis Index 5
[2020-12-28 14:53] LABS: Basophils % (Auto) 0.8 % (0.0-1.8); Eosinophils # (Auto) 0.1 K/mm3 (0.0-0.4); Eosinophils % (Auto) 1.3 % (0.0-4.3); Hematocrit 34.9 % (30.3-42.9); Hemoglobin 11.7 gm/dl (10.1-14.3); Lymphocytes # (Auto) 1.7 K/mm3 (1.2-5.4); Lymphocytes % (Auto) 40.1 % (13.4-35.0); Mean Corpuscular HGB Conc 34 % (30-34); Mean Corpuscular Volume 95 fl (79-97); Monocytes # (Auto) 0.4 K/mm3 (0.0-0.8); Monocytes % (Auto) 9.1 % (0.0-7.3); Platelet Count 183 K/mm3 (140-440); Red Blood Count 3.68 M/mm3 (3.65-5.03); Red Cell Distribution Width 12.1 % (13.2-15.2)
== END 2020-12-28 09:14 | disposition home or self-care (01) ==
LOC: LAB 09:13
PROVIDERS: ATTEND Psychiatry & Neurology Neurology
DX: G35 Multiple sclerosis (principal)
CPT/HCPCS: 36415; 80053; 85025

== ENCOUNTER 2021-04-29 08:26 | Outpatient (CLI) | payer BC ==
[2021-04-29 09:13] LABS: BUN/Creatinine Ratio 14; Blood Urea Nitrogen 11 mg/dL (7-17); Calcium 9.6 mg/dL (8.4-10.2); Hemolysis Index 1
== END 2021-04-29 08:27 | disposition home or self-care (01) ==
LOC: LAB 08:26
PROVIDERS: ATTEND Internal Medicine
DX: I10 Essential (primary) hypertension (principal)
CPT/HCPCS: 36415; 80048

== ENCOUNTER 2021-05-30 08:35 | Outpatient (CLI) | payer BC ==
--- NOTE | 2021-05-30 13:51 | Magnetic Resonance Report ---
MRI CERVICAL SPINE WITHOUT AND WITH CONTRAST INDICATION / CLINICAL INFORMATION: MALIGNANT NEOPLASM OF FRONTAL LOBE, FOLLOW UP 4MOS, MS. TECHNIQUE: Multisequence, multiplanar images of the cervical spine were obtained. Contrast dose report: Clairscan: 18 ML administered intravenously. COMPARISON: None available. FINDINGS: POSTOPERATIVE CHANGES: none CRANIOCERVICAL JUNCTION:No significant abnormality. ALIGNMENT: No significant abnormality. VERTEBRAE:Incidental note is made of a vertebral pneumatocele cyst at the inferior endplate of C4 to the right of midline. No suspicious areas of abnormal bone marrow signal intensity are identified. CERVICAL INTERVERTEBRAL DISCS: Advanced disc desiccation is noted at the C4-5 and C5-6 level. Disc he ight is normally maintained elsewhere. VISUALIZED SPINAL CORD: No intrinsic cord lesions are identified. [id number] ANALYSIS: C2-3: No significant disc abnormality, spinal canal stenosis, or neural foraminal stenosis. C3-4: Uncovertebral arthropathy appears to account for moderate right-sided and mild left-sided neuro foraminal stenosis at the C4 nerve root level. C4-5: Advanced disc desiccation is noted. Bilobed disc protrusion flattens the thecal sac slightly. T here is a mild degree of central canal stenosis. Uncovertebral arthropathy contributes to moderate bi lateral neuroforaminal stenosis. C5-6: Advanced disc desiccation is noted with near complete loss of disc height. Uncovertebral arthro faby contributes to severe bilateral foraminal stenosis at the C6 nerve root level. Posterior disc o steophyte complex flattens the thecal sac. There is decreased CSF surrounding the cord at this level. AP diameter of the spinal canal is about 7 mm. These findings indicate moderate central canal stenos is at the C5-6 level. C6-7: Disc desiccation is noted. Facet and uncovertebral arthritic change contribute to moderate bila teral neuroforaminal stenosis at the C7 nerve root level. Central spinal canal is adequate in size. C7-T1: No significant disc abnormality, spinal canal stenosis, or neural foraminal stenosis. PARASPINAL SOFT TISSUES: No significant abnormality. IMPRESSION: 1. Widespread cervical spondylosis with multifocal neuroforaminal narrowing as described level by joss el above. 2. Mild central canal stenosis C4-5 and moderate central canal stenosis C5-6. Signer Name: Lowell Garner MD Signed: 05/30/2021 1:47 PM Workstation Name: [id number]
--- NOTE | 2021-05-30 14:25 | Magnetic Resonance Report ---
MRI BRAIN WITHOUT CONTRAST INDICATION / CLINICAL INFORMATION: MALIGNANT NEOPLASM OF FRONTAL LOBE, MS, DIFFICULTY WALKING, FOLLOW UP. TECHNIQUE: Multiplanar, multisequence MR images of the brain were obtained. Contrast: Clairscan: 18 ml, administered intravenously. COMPARISON: MRI brain 12/13/2020 and 05/12/2019. FINDINGS: BRAIN / INTRACRANIAL CONTENTS: Patient is status post left frontal craniotomy for resection of malign ant neoplasm. Encephalomalacia and postoperative porencephalic changes are present in the anterior po le of the left frontal lobe adjacent to the craniotomy defect. Dural enhancement is observed. Finding s are stable in comparison to prior study. Multifocal white matter lesions are identified. Patient carries a diagnosis of multiple sclerosis. Th ashli findings are consistent with demyelinating plaques of multiple sclerosis. In light of history of frontal lobe neoplasm possibility of postradiation therapy change could also be considered. Findings are stable in comparison to prior study. There are no enhancing white matter lesions identified on th is study. The brainstem and cerebellum have an unremarkable appearance. MIDLINE STRUCTURES:No abnormalities are seen to involve the pituitary gland. Pineal region has an unr emarkable appearance. CRANIOCERVICAL JUNCTION: No abnormalities are identified at the craniocervical junction. VASCULAR FLOW-VOIDS: Normal flow-voids are present within the major intracranial vessels. ORBITS: The orbits have an unremarkable appearance. SINUSES / MASTOIDS: There is no indication of inflammatory disease in the paranasal sinuses or mastoi d air cells. IMPRESSION: 1. Postoperative changes left frontal lobe appears stable in comparison to prior studies dating back through 05/12/2019. There is no indication of recurrent or residual tumor. 2. Multifocal white matter lesions consistent with patient's diagnosis of multiple sclerosis not sign ificantly changed compared to prior study. Signer Name: Lowell Garner MD Signed: 05/30/2021 2:21 PM Workstation Name: [email or web address]
== END 2021-05-30 08:36 | disposition home or self-care (01) ==
LOC: MRI 08:35
PROVIDERS: ATTEND Psychiatry & Neurology Neurology
DX: G93.89 Other specified disorders of brain (principal); G54.2 Cervical root disorders, not elsewhere classified; M47.812 Spondylosis without myelopathy or radiculopathy, cervical region; M48.02 Spinal stenosis, cervical region; M25.78 Osteophyte, vertebrae; R90.82 White matter disease, unspecified
CPT/HCPCS: 70553; 72156; A9575

== ENCOUNTER 2021-09-27 08:04 | Day surgery (SDC) | payer BC ==
[~2021-09-27 08:04] MED LIST: SODIUM CHLORIDE 0.9% 1000 ML 1,000 ML IV SCH
--- NOTE | 2021-09-27 09:07 | Anesthesia Day of Surgery ---
Anesthesia Day of Surgery - Day of Surgery Patient Examined: Yes Patient H&P Reviewed: Yes Patient is NPO: Yes
--- NOTE | 2021-09-27 09:11 | Anesthesia Consultation ---
Anesthesia Consult and Med Hx Date of service: 09/27/21 - Airway Anesthetic Teeth Evaluation: Good, Crowns (Chipped) ROM Head & Neck: Adequate Mental/Hyoid Distance: Adequate Mallampati Class: Class I Intubation Access Assessment: Good - Pre-Operative Health Status ASA Pre-Surgery Classification: ASA3 Proposed Anesthetic Plan: MAC - Pulmonary Hx Smoking: No Hx Asthma: Yes (Last treated years ago) Hx Pneumonia: No Hx Sleep Apnea: No - Cardiovascular System Hx Hypertension: Yes (Controlled by med) - Central Nervous System Hx Neuromuscular Disorder: Yes (MS; Craniotomy-oligodendroglioma [id number]) Hx Psychiatric Problems: No - Gastrointestinal Hx Gastroesophageal Reflux Disease: No - Hematic Hx Sickle Cell Disease: No - Other Systems Hx Cancer: Yes Hx Obesity: No
[2021-09-27] MEDS ORDERED: LIDOCAINE MPF (2%) 20 MG/1 ML VIAL 5 ML ONE (09:13)
[2021-09-27] MEDS ORDERED: propofoL 200 MG/20 ML VIAL IV ONE ×2 (09:14→10:36)
--- NOTE | 2021-09-27 11:04 | Short Stay Summary ---
Short Stay Documentation Date of service: 09/27/21 Narrative H&P: Pt here for screening colonoscopy. BMs regular, qd to qod, no change, no GI bleed, no family hx of colon cancer. No weight loss. - History Past Medical History: hypertension, other (Multiple sclerosis) Past Surgical History: Other (Craniotomy for oligodendroglioma in 2016, treated with surgery and chemotherapy) Social history: no significant social history, no smoking, no alcohol abuse - Allergies and Medications Current Medications: Allergies No Known Allergies Allergy (Verified 09/24/21 15:52) Home Medications Medication Instructions Recorded Confirmed Last Taken Type levETIRAcetam [Keppra TAB] 500 mg PO BID 06/02/18 09/24/21 05/11/19 History hydroCHLOROthiazide [HCTZ] 12.5 mg PO DAILY 05/12/19 09/24/21 05/11/19 History traZODone [Desyrel] 100 mg PO QHS 05/12/19 09/24/21 05/11/19 History Diroximel Fumarate (Nf) [Vumerity 462 mg PO BID 09/24/21 09/24/21 Unknown History (Nf)] Active Medications Sodium Chloride (Nacl 0.9% 1000 Ml) 1,000 mls @ 50 mls/hr IV DIRECT DAVE - Physical exam General appearance: no acute distress HEENT: PERRLA, EOMI Lungs: Clear to auscultation Heart: Regular rate, Normal S1, Normal S2 Gastrointestinal: normal Extremities: No edema - Brief post op/procedure progress note Date of procedure: 09/27/21 Pre-op diagnosis: Screening Post-op diagnosis: other (Colon polyp) Procedure: Colonoscopy with hot snare polypectomy and cold biopsy polypectomy. Findings: 1. 3 ascending colon polypsremoved with hot snare and cold biopsy polypectomy. 2. 2 descending colon polypsremoved with hot snare polypectomy. 3. Otherwise normal colonoscopy Surgeon: MEGAN PACHECO Estimated blood loss: none Pathology: list (1. Descending colon polyps, 2. Ascending colon polyp) Specimen disposition: to lab Condition: stable - Disposition Condition at discharge: Good Disposition: 01 HOME / SELF CARE / HOMELESS Short Stay Discharge Plan Diet: regular Follow up with: LORRIE FRANCO MD [Primary Care Provider] - 7 Days
[2021-09-27 11:48] VITALS: BP 134/77
--- NOTE | 2021-09-27 12:03 | Operative Report ---
DATE OF SURGERY: 09/27/2021 DATE OF PROCEDURE: 09/27/2021 PROCEDURE: Colonoscopy with hot snare and cold biopsy polypectomy. PREOPERATIVE DIAGNOSIS: Screening. POSTOPERATIVE DIAGNOSIS: Colon polyps. SEDATION: MAC by Anesthesia. HISTORY: The patient is a 56-year-old woman who presents for screening colonoscopy. Procedure, indications, risks and benefits were explained and consent was obtained. DESCRIPTION OF PROCEDURE: The patient was placed in left lateral decubitus position and sedated. Video colonoscope was passed through the rectum after digital examination and passed with minimal difficulty to the cecum, which was identified by the ileocecal valve and the appendiceal orifice. Scope was then gradually withdrawn with close inspection of mucosa. Prep was good. FINDINGS: 1. Two ascending colon polyps measuring approximately 5 and 6 mm that were flat. These were removed with hot snare polypectomy. 2. A 3 mm ascending colon polyp -- removed with cold biopsy polypectomy. 3. Two descending colon polyps measuring approximately 4-5 mm each that were flat, and removed with hot snare polypectomy. 4. Remainder of visualized colonic mucosa is normal appearing with no evidence of mass lesions, vascular lesions or inflammation. The patient tolerated the procedure well without immediate complication. IMPRESSION: 1. Colon polyps -- removed as above. 2. Otherwise normal colonoscopy. PLAN: 1. Follow up biopsies. 2. Repeat colonoscopy in 5 years if adenomatous. TID: [id number] RECEIPT: [id number] C/TIFFANIE cc: LORRIE FRANCO MD
[2021-09-27] MEDS ORDERED: SODIUM CHLORIDE 0.9% 1000 ML 1,000 ML ONE (14:23)
--- NOTE | 2021-09-27 18:15 | Post Anesthesia Evaluation ---
- Post Anesthesia Evaluation Patient Participated: Yes Airway Patent: Yes Stable Respiratory Function: Yes Nausea/Vomiting: No Temp > 96.8F: Yes Pain Manageable: Yes Adequeate Hydration: Yes Anesthesia Complications: No Block Receding Appropriately: Not Applicable Patient on Ventilator: No
== END 2021-09-27 12:05 | disposition home or self-care (01) ==
LOC: GIO 08:04
PROVIDERS: ATTEND Internal Medicine Gastroenterology
DX: Z12.11 Encounter for screening for malignant neoplasm of colon (principal); D12.2 Benign neoplasm of ascending colon; K63.89 Other specified diseases of intestine; I10 Essential (primary) hypertension; J45.909 Unspecified asthma, uncomplicated; F32.9 Major depressive disorder, single episode, unspecified; G40.909 Epilepsy, unspecified, not intractable, without status epilepticus; Z98.890 Other specified postprocedural states; Z79.899 Other long term (current) drug therapy; Z87.898 Personal history of other specified conditions
CPT/HCPCS: 45380; 45385; 88305; J2704; J3490; J7030; J7120; Q0162

== ENCOUNTER 2021-10-23 12:44 | Outpatient (CLI) | payer BC ==
--- NOTE | 2021-10-23 15:23 | Magnetic Resonance Report ---
MRI BRAIN 10/23/2021 INDICATION / CLINICAL INFORMATION: G35, 6 MONTH F/U POST CRANIOTOMY, MS, NO NEW SYMPTOMS. TECHNIQUE: Multiplanar, multisequence MR images of the brain were obtained. COMPARISON: MRI brain 05/30/2021 FINDINGS: BRAIN / INTRACRANIAL CONTENTS: Unenhanced and enhanced MR images of the brain were obtained and heather red to the prior exam from 05/22/2021. Again seen is evidence of the left frontal craniotomy. Left frontal cortical and subcortical encephal omalacia and gliosis is present, unchanged when compared to the prior exam. There is no evidence of acute abnormality. Ventricles and sulci are within normal limits of size and shape for a patient of this age. Nonspecific white matter T2 weighted hyperintensities are present throughout the cerebral hemispheric white matter, unchanged when compared to the prior exam. The pattern is nonspecific, but would be co nsidered compatible with a provided history of multiple sclerosis. Postcontrast images demonstrate no abnormal contrast enhancement. EXTRACRANIAL: Unremarkable CRANIOCERVICAL JUNCTION: No significant abnormality. VASCULAR FLOW-VOIDS: No significant abnormality. IMPRESSION: Postoperative change. Chronic white matter T2 weighted hyperintensities. No significant change when compared to 05/22/2021. Signer Name: Herberth Dumont MD Signed: 10/23/2021 3:19 PM Workstation Name: [id number]
== END 2021-10-23 12:45 | disposition home or self-care (01) ==
LOC: MRI 12:44
PROVIDERS: ATTEND Internal Medicine Medical Oncology
DX: C71.1 Malignant neoplasm of frontal lobe (principal); G35 Multiple sclerosis
CPT/HCPCS: 70553; A9575

== ENCOUNTER 2021-11-22 13:00 | Outpatient (CLI) | payer BC ==
[2021-11-22 13:19] LABS: Basophils # (Auto) 0.1 K/mm3 (0.0-0.1); Basophils % (Auto) 1.3 % (0.0-1.8); Eosinophils # (Auto) 0.1 K/mm3 (0.0-0.4); Eosinophils % (Auto) 2.1 % (0.0-4.3); Hemoglobin 11.3 gm/dl (10.1-14.3); Lymphocytes # (Auto) 1.3 K/mm3 (1.2-5.4); Lymphocytes % (Auto) 32.9 % (13.4-35.0); Mean Corpuscular HGB Conc 32 % (30-34); Mean Corpuscular Volume 93 fl (79-97); Monocytes # (Auto) 0.4 K/mm3 (0.0-0.8); Monocytes % (Auto) 9.6 % (0.0-7.3); Platelet Count 166 K/mm3 (140-440); Red Blood Count 3.75 M/mm3 (3.65-5.03); Red Cell Distribution Width 11.6 % (13.2-15.2)
[2021-11-22 13:43] LABS: Alanine Aminotransferase 23 units/L (7-56); Albumin 4.6 g/dL (3.9-5); BUN/Creatinine Ratio 20; Blood Urea Nitrogen 18 mg/dL (7-17); Calcium 9.7 mg/dL (8.4-10.2); Hemolysis Index 3
== END 2021-11-22 13:01 | disposition home or self-care (01) ==
LOC: LAB 13:00
PROVIDERS: ATTEND Internal Medicine
DX: I10 Essential (primary) hypertension (principal)
CPT/HCPCS: 36415; 80053; 85025

== ENCOUNTER 2021-12-05 09:28 | Outpatient (CLI) | payer BC ==
--- NOTE | 2021-12-09 15:32 | Mammography Report ---
DIGITAL SCREENING MAMMOGRAM WITH CAD, 12/05/2021 CLINICAL INFORMATION / INDICATION: Routine screening mammography. Z12.31 TECHNIQUE: Digital bilateral 2D mammography was obtained in the craniocaudal and mediolateral obliqu e projections. This examination was interpreted with the benefit of Computer-Aided Detection analysis . COMPARISON: 11/13/2020 07/16/2018 FINDINGS: Breast Density: The breasts are heterogeneously dense, which may obscure small masses. No dominant mass, suspicious calcifications, or architectural distortion in either breast. No interval change. IMPRESSION: No mammographic evidence of malignancy. Follow up recommendation: Routine yearly screening mammogram. BI-RADS Category 1: NEGATIVE A "normal" or negative report should not discourage follow up or biopsy of a clinically significant f inding. A written summary of these findings will be mailed to the patient. The patient will be entered into a mammography reporting system which will generate a reminder letter for the patient's next appointmen t at the appropriate interval. The [employer] recommends yearly mammograms starting at age 40 and continuing as l lissa as a woman is in good health. Breast MRI is recommended for women with an approximate 20-25% or greater lifetime risk of breast cancer, including women with a strong family history of breast or ova audra cancer or who have been treated for Hodgkin's disease. Signer Name: Sachi Morrell MD Signed: 12/09/2021 3:27 PM Workstation Name: [id number]
== END 2021-12-05 09:29 | disposition home or self-care (01) ==
LOC: MAMMO 09:28
PROVIDERS: ATTEND Internal Medicine
DX: Z12.31 Encounter for screening mammogram for malignant neoplasm of breast (principal)
CPT/HCPCS: 77067

== ENCOUNTER 2022-04-11 07:16 | Outpatient (CLI) | payer BC ==
--- NOTE | 2022-04-11 13:42 | Magnetic Resonance Report ---
MRI BRAIN 04/11/2022 INDICATION / CLINICAL INFORMATION: G35 C71.1, 6 MOS. FOLLOW-UP CRANIOTOMY 2016, MS, NO NEW SYMPTOMS. TECHNIQUE: Multiplanar, multisequence MR images of the brain were obtained. COMPARISON: MRI brain 10/23/2021 FINDINGS: BRAIN / INTRACRANIAL CONTENTS: Unenhanced and enhanced MR images of the brain were obtained and heather red to the prior exam from 10/23/2021. There is been no change. Again seen are postoperative changes in the left frontal lobe, with areas of encephalomalacia in T1 and T2-weighted signal. Serpiginous hypointensity on the axial pre and echo images at below the cr aniotomy site are again noted. On the postcontrast images, there is no evidence of abnormal contrast enhancement to suggest tumor re currence or other abnormality. Underlying moderate diffuse cerebral atrophy and extensive chronic white matter T2 weighted hyperinte nsities are again noted. There are no abnormal extra-axial fluid collections. EXTRACRANIAL: Unremarkable CRANIOCERVICAL JUNCTION: No significant abnormality. VASCULAR FLOW-VOIDS: No significant abnormality. IMPRESSION: Overall no change when compared to 10/23/2021. Extensive postoperative change, and chronic underlying changes as above. Signer Name: Herberth Dumont MD Signed: 04/11/2022 1:38 PM Workstation Name: [id number]
== END 2022-04-11 07:17 | disposition home or self-care (01) ==
LOC: MRI 07:16
PROVIDERS: ATTEND Internal Medicine Medical Oncology
DX: C71.1 Malignant neoplasm of frontal lobe (principal); G35 Multiple sclerosis
CPT/HCPCS: 70553; A9575